=== PATIENT | male | born 1980 | race African-American/Black ===

== ENCOUNTER 2016-07-29 01:52 | Emergency (ER) | payer SELFPAY ==
[~2016-07-29] VITALS: Ht 172.7 cm; Wt 91.9 kg
[2016-07-29] MEDS ORDERED: NAPROXEN500 MG PO (02:34)
[2016-07-29 02:46] VITALS: BP 122/87
== END 2016-07-29 02:46 | disposition home or self-care (01) ==
LOC: EME 01:52 → EXP 01:52
DX: M77.8 Other enthesopathies, not elsewhere classified (principal)
CPT/HCPCS: 73110; 99281; 99283